=== PATIENT | male | born 1970 | race American Indian/Alaskan Native ===

== ENCOUNTER 2016-12-12 20:04 | Emergency (ER) | payer MEDICAID ==
[2016-12-12 20:17] VITALS: RESP 18; TEMP 98.8; O2SAT 98
--- NOTE | 2016-12-12 21:05 | ED PDOC ---
Arrival/HPI - General Chief Complaint: Back Pain Time Seen by Provider: 12/12/16 20:07 - History of Present Illness Narrative History of Present Illness (Text): 46 y/o M c PMHx back surgery for "bone that was wrapped around something" p/w back pain x 3 days. Pain is in L lower back, sharp, worse with movement, shoots down L leg. States began with carrying heavy bags and a big TV. Denies fever, trauma, recent procedure, urinary or bowel changes, numbness, or weakness, abdominal pain. Patient notes he has been constipated. Took ibuprofen for the pain, last 2 days ago. Past Medical History - Cardiac Hx Hypertension: Yes - Pulmonary Hx Respiratory Disorders: No - Neurological Hx Neurological Disorder: No - HEENT Hx HEENT Disorder: No - Renal Hx Renal Disorder: No - Endocrine/Metabolic Hx Endocrine Disorders: No - Hematological/Oncological Hx Blood Disorders: No - Integumentary Hx Dermatological Disorder: No - Musculoskeletal/Rheumatological Hx Back Pain: Yes - Gastrointestinal Hx Gastrointestinal Disorders: No - Genitourinary/Gynecological Hx Genitourinary Disorders: No - Psychiatric Hx Psychophysiologic Disorder: No Hx Substance Use: No - Surgical History Other/Comment: BACK Family/Social History Family/Social History: No Known Family HX Smoking Status: Heavy Smoker > 10 Cigarettes Daily Hx Alcohol Use: Yes Frequency of alcohol use: Socially Hx Substance Use: No Allergies/Home Meds Allergies/Adverse Reactions: Allergies No Known Allergies Allergy (Verified 12/12/16 20:07) Review of Systems - Physician Review All systems were reviewed & negative as marked: Yes - Review of Systems Constitutional: absent: Fevers Cardiovascular: absent: Chest Pain Physical Exam Vital Signs Temp Pulse Resp BP Pulse Ox 12/12/16 20:07 98.8 F 91 H 18 123/84 98 - Systems Exam Head: Present: Normocephalic Mouth: Present: Moist Mucous Membranes Neck: No: MIDLINE TENDERNESS Respiratory/Chest: Present: Clear to Auscultation Cardiovascular: Present: Normal S1, S2 Abdomen: No: Tenderness, Distention, Peritoneal Signs, Rebound, Guarding Back: Present: Paraspinal Tenderness (L lower back in small focal area), Pain with Leg Raise (L). No: Midline Tenderness Upper Extremity: Present: NORMAL PULSES Lower Extremity: No: Edema Neurological: Present: GCS=15, Motor Func Grossly Intact, Normal Sensory Function (in bilateral lower legs and saddle area) Skin: No: Rashes Psychiatric: Present: Alert Medical Decision Making ED Course and Treatment: Toradol, Robaxin. F/u PMD, advised to obtain imaging if not improved after 3 weeks. Otherwise, no red flag symptoms or other indication for imaging at this time. Instructed to return to the ED immediately for fever, numbness, weakness, urinary or bowel symptoms. - Medication Orders Current Medication Orders: Discontinued Medications Famotidine (Pepcid) 20 mg PO STAT STA Stop: 12/12/16 21:30 Ketorolac Tromethamine (Toradol) 60 mg IM STAT STA Stop: 12/12/16 21:29 Methocarbamol (Robaxin) 1,000 mg PO STAT STA Stop: 12/12/16 21:29 Disposition/Present on Arrival - Present on Arrival Any Indicators Present on Arrival: No History of DVT/PE: No History of Uncontrolled Diabetes: No Urinary Catheter: No History of Decub. Ulcer: No History Surgical Site Infection Following: None - Disposition Have Diagnosis and Disposition been Completed?: Yes Diagnosis: Back pain Disposition: HOME/ ROUTINE Disposition Time: 21:37 Patient Plan: Discharge Patient Problems: Current Active Problems Problem Status Onset Back pain Acute Condition: STABLE Discharge Instructions (ExitCare): Sciatica (ED) Prescriptions: Famotidine [Pepcid] 1 tab PO BID #14 tab Ibuprofen [Motrin] 600 mg PO Q6 #25 tab Methocarbamol [Robaxin-750] 1 tab PO Q8H #12 tablet Polyethylene Glycol 3350 [Miralax] 17 gm PO DAILY #238 gm Referrals: Ita Watt MD [Primary Care Provider] - Follow up with primary Forms: [place] (Irish)
[2016-12-12] MEDS ORDERED: Methocarbamol 500 MG Tab PO STA (21:28)
[2016-12-12 22:28] VITALS: BP 126/77; PULSE 87
== END 2016-12-12 22:27 | disposition home or self-care (01) ==
LOC: ED 20:04
DX: M54.5 Low back pain (principal)
CPT/HCPCS: 96372; 99282; J1885